=== PATIENT | male | born 1955 | race American Indian/Alaskan Native ===

== ENCOUNTER 2018-08-25 14:57 | Inpatient (IN) | payer MEDICARE, OTHER ==
[2018-08-25] MEDS ORDERED: SOLU-Medrol IV ONE (15:12)
[2018-08-25 15:45] LABS: Basophils % (Auto) 0.5 % (0.0-1.8); Eosinophils % (Auto) 0.2 % (0.0-4.3); Hematocrit 38.6 % (35.5-45.6); Hemoglobin 12.3 gm/dl (11.8-15.2); Lymphocytes # (Auto) 0.7 K/mm3 (1.2-5.4); Lymphocytes % (Auto) 9.7 % (13.4-35.0); Mean Corpuscular HGB Conc 32 % (32-34); Mean Corpuscular Volume 98 fl (84-94); Monocytes # (Auto) 0.5 K/mm3 (0.0-0.8); Monocytes % (Auto) 7.1 % (0.0-7.3); Platelet Count 330 K/mm3 (140-440); Red Blood Count 3.94 M/mm3 (3.65-5.03); Red Cell Distribution Width 15.1 % (13.2-15.2)
[2018-08-25 15:56] LABS: INR 1.38 (0.87-1.13)
[2018-08-25 15:57] LABS: Partial Thromboplastin Time 41.7 Sec. (24.2-36.6)
[2018-08-25] MEDS ORDERED: NACL 0.9% 1000 ML IV ONE (16:04)
[2018-08-25] MEDS ORDERED: VANCOMYCIN 1,250 MG in NACL 0.9% 500 ML 500 ML IV ONE (16:04)
--- NOTE | 2018-08-25 17:23 | Cat Scan Report ---
FINAL REPORT EXAM: CT ANGIO CHEST HISTORY: hypoxia respiratory failure history of lung cancer TECHNIQUE: CTA of chest with IV contrast. Coronal and sagittal and MIP reconstructed images provided . PRIORS: None currently available. FINDINGS: Medial anterior left upper lobe mass measures 7.2 x 9.1 x 7.8 cm with heterogeneous enhancement. Lesi on abuts the pericardium with out obvious direct cardiac invasion. Lesion extends through the thoraci c wall with a soft tissue component measuring 7.5 x 2.4 cm. Rib destruction noted. Protrusion and mas s-effect on the pectoralis muscle noted. Stranding of the nearby lung parenchymal soft tissues may be related to pulmonary fibrosis or lymphangitic spread. Mild nearby pleural thickening identified. Mod erate emphysema noted. Diffuse interseptal thickening with traction bronchiectasis noted. Peripheral honeycombing identified. Ground-glass opacities noted in the dependent both lungs. No centrilobular n odules. No distinct endobronchial lesion. Axillary regions are unremarkable. No significant mediastinal adenopathy. Hilar regions are grossly u nremarkable. Images of the esophagus are unremarkable. Moderate aortic atherosclerotic disease. No aneurysm. No dissection. Major branch arteries are patent . Moderate disease at the origin of the major branch arteries. Main pulmonary artery is intact. No tumor invasion. No pulmonary embolus. Moderate cardiomegaly. No significant pericardial effusion. Some coronary artery disease. Indeterminate nodularity of the left adrenal gland measures 1.8 x 1.2 cm. There may be some indetermi liat nodularity of the right adrenal gland measuring 1.9 x 1.1 cm. Tumor osseous destruction of the left anterior 3rd, 4th, and 5th ribs. Metastatic disease better eval uated with bone scan. Degenerative changes are present in the spine. Scoliosis. IMPRESSION: Emphysema. Interseptal thickening with traction bronchiectasis and ground-glass opacities may represent pulmonar y fibrosis. Differential diagnosis does include mild underlying pulmonary vascular congestion. Large anterior medial left upper lobe mass extending through the thoracic margins into the anterior s oft tissues with rib destruction. No aortic aneurysm. No pulmonary embolus. Cardiomegaly. Indeterminate bilateral adrenal nodules.
[2018-08-25 18:03] LABS: Hematocrit 40.9 % (35.5-45.6); Hemoglobin 13.5 gm/dl (11.8-15.2); Mean Corpuscular HGB Conc 33 % (32-34); Mean Corpuscular Volume 97 fl (84-94); Platelet Count 187 K/mm3 (140-440); Red Blood Count 4.21 M/mm3 (3.65-5.03); Red Cell Distribution Width 14.9 % (13.2-15.2)
--- NOTE | 2018-08-25 18:08 | XRay Report ---
FINAL REPORT EXAM: XR CHEST 1V AP HISTORY: Dyspnea TECHNIQUE: Frontal portable examination of the chest PRIORS: Chest CT 08/25/2018 FINDINGS: Patchy opacity likely corresponds to nonspecific large mass on chest CT in the anteromedial lower asp ect of the left upper lobe. It extends from the cardiac margin to the anterolateral pleural surface. Nonspecific streaky densities are present bilaterally and diffusely. This interstitial prominence ma y represent interstitial and/or vascular markings. No evidence of pleural effusion or pneumothorax. The cardiac silhouette size is slightly enlarged. N o evidence of acute displaced fracture. Postsurgical changes with midline median sternotomy suggest p rior CABG procedure. Arterial calcification is compatible with atherosclerosis. Surgical clips visibl e in right lower neck. IMPRESSION: Nonspecific interstitial prominence may reflect scarring or fibrosis. Acute considerations include r eactive airways disease, vascular congestion, interstitial edema, viral process, or interstitial pneu monitis. Patchy opacity likely corresponds to nonspecific large mass on chest CT in the anteromedial lower asp ect of the left upper lobe. It extends from the cardiac margin to the anterolateral pleural surface. Cardiomegaly
[2018-08-25] MEDS ORDERED: ATIVAN IV ONE (18:25)
[2018-08-25 18:30] LABS: Band Neutrophils # (Manual) 0.1 K/mm3; Basophils % (Manual) 0 % (0.0-1.8); Eosinophils % (Manual) 0 % (0.0-4.3); Total Cells Counted 100
[2018-08-25 18:31] LABS: Platelet Estimate Consistent w Auto; Poikilocytosis Few
[2018-08-25] MEDS ORDERED: VASELINE LIP THERAPY TP PRN (19:04)
[2018-08-25] MEDS ORDERED: ARTIFICIAL TEARS OPHTH OINT OU PRN (19:04)
[2018-08-25] MEDS ORDERED: AMIDATE IV ONE (19:18)
[2018-08-25] MEDS ORDERED: VERSED IV ONE (19:18)
[2018-08-25] MEDS ORDERED: QUELICIN ONE (19:18)
[2018-08-25] MEDS: MAXIPIME/NS 2 GM/100 ML 2 GM/100 ML BAG IV SCH ×2 (19:22→22:00)
[2018-08-25] MEDS ORDERED: DIPRIVAN 10 MG/ML 1,000 MG/100 ML BOTTLE IV SCH (19:25)
--- NOTE | 2018-08-25 19:26 | Emergency Department Report ---
ED Shortness of Breath HPI - General Chief Complaint: Dyspnea/Respdistress Stated Complaint: RESPIRATORY DISTRESS Time Seen by Provider: 08/25/18 14:59 Source: EMS Mode of arrival: Stretcher Limitations: No Limitations - History of Present Illness Initial Comments: Mr. Graff is a 63 yo male who has stage 3B T4N0 non small cell lung cancer currently receiving radiation treatment per Dr. Noriega. For several days, Mr. Graff has had severe shortness of breath and cough. No hx of COPD. Denies chest pain. EMS reported severe 66% room air oxygen saturation. Mr. Graff was able to only give limited hx. He also has left leg numbness/weakness. He stated that sometimes his leg worked and sometimes it did not work. PCP [facility] at [facility] Additional information was provided by radiation oncologist Dr. Noriega Dr. Noriega explained that Mr. Graff was diagnosed with lung cancer last year. He did not desire any treatment. His in February after suffering this chemotherapy. He refused chemotherapy. Eventually he decided to accept radiation. Dr. Noriega administered [address] Noriega explained that Mr. Graff has a T4 tumor with invasion into the myocardium and pericardium with rib destruction. Radiation treatment completed in June. In July, Dr. Noriega felt that Mr. Graff looked much better. Complaint: shortness of breath -: Gradual, days(s) (several days) Severity: severe Consistency: constant Improves With: nothing Worsens With: lying flat Known History Of: other (stage 3 lung cancer, radiation therapy by Dr. Noriega) Context: smoke/fume exposure Associated Symptoms: cough, other (left leg numbness, intermittent weakness) - Related Data Allergies Allergy/AdvReac Type Severity Reaction Status Date / Time No Known Allergies Allergy Verified 08/25/18 15:07 ED Review of Systems ROS: Stated complaint: RESPIRATORY DISTRESS Other details as noted in HPI Comment: All other systems reviewed and negative Constitutional: malaise. denies: fever Respiratory: cough, shortness of breath Cardiovascular: denies: chest pain ED Past Medical Hx - Past Medical History Previous Medical History?: Yes Hx Congestive Heart Failure: Yes (2008) Hx of Cancer: Yes (stage 3 lung cancer) - Surgical History Past Surgical History?: No - Social History Smoking Status: Current Every Day Smoker Substance Use Type: None ED Physical Exam - General Limitations: No Limitations General appearance: in distress, other (severe work of breathing, speaking 2-3 word sentences) - Head Head exam: Present: atraumatic, normocephalic - Eye Eye exam: Present: normal appearance. Absent: scleral icterus - ENT ENT exam: Present: other (coated tongue poor dentition) - Neck Neck exam: Present: normal inspection, full ROM. Absent: tenderness, meningismus - Respiratory Respiratory exam: Present: normal lung sounds bilaterally, respiratory distress, accessory muscle use. Absent: wheezes, rales, rhonchi, chest wall tenderness - Cardiovascular Cardiovascular Exam: Present: regular rate, normal rhythm, tachycardia, normal heart sounds. Absent: systolic murmur, diastolic murmur - GI/Abdominal GI/Abdominal exam: Present: soft. Absent: distended, tenderness, guarding, rebound - Extremities Exam Extremities exam: Present: normal inspection - Neurological Exam Neurological exam: Present: alert, oriented X3 - Skin Skin exam: Present: warm, dry, intact, normal color ED Course Vital Signs 08/25/18 08/25/18 08/25/18 15:01 15:03 15:15 Temperature Pulse Rate 98 H 101 H Respiratory 18 37 H Rate Blood Pressure 132/71 132/71 132/71 Blood Pressure [Left] O2 Sat by Pulse 92 91 92 Oximetry 08/25/18 08/25/18 08/25/18 15:31 15:45 16:01 Temperature Pulse Rate 97 H 94 H 95 H Respiratory 34 H 31 H 38 H Rate Blood Pressure 132/71 150/75 150/75 Blood Pressure [Left] O2 Sat by Pulse 92 93 Oximetry 08/25/18 08/25/18 08/25/18 16:33 16:45 17:00 Temperature Pulse Rate Respiratory Rate Blood Pressure 150/75 150/75 156/67 Blood Pressure [Left] O2 Sat by Pulse 85 94 91 Oximetry 08/25/18 08/25/18 08/25/18 17:15 17:31 17:45 Temperature Pulse Rate Respiratory Rate Blood Pressure 156/67 153/97 147/88 Blood Pressure [Left] O2 Sat by Pulse 91 85 89 Oximetry 08/25/18 08/25/18 08/25/18 18:00 18:15 18:30 Temperature Pulse Rate 93 H 113 H 121 H Respiratory 32 H 37 H 37 H Rate Blood Pressure 145/80 145/80 194/105 Blood Pressure [Left] O2 Sat by Pulse 78 L 84 77 L Oximetry 08/25/18 08/25/18 08/25/18 18:45 19:00 19:09 Temperature 98.1 F Pulse Rate 114 H 108 H 110 H Respiratory 45 H 21 34 H Rate Blood Pressure 143/97 162/83 Blood Pressure 149/97 [Left] O2 Sat by Pulse 96 91 88 Oximetry - Procedure Description Procedures done: Nasogastric Tube Insertion: I inserted 12 Fr NGT, did ausculate sound of [place] pump air movement in epigastric - ABG Interpretation Interpretation: metabolic acidosis Additional Comments: severe worsening respiratory acidosis, initially able to compensate with respiratory effort, then eventually respiratory failure - Intubation Time Out Performed: Yes Sedative: Etomidate Mg Given: 20 Paralytic: Succinylcholine Mg Given: 150 Laryngoscope: Citlali Size: 4 ET Tube Size: 8 Tube Secured Depth (cm): 22 Tube Secured Location: lips Tube Placement Confirmation: visualized tube passing t, equal breath sounds bilat, no breath sounds over epi, confirmation by capnometr Patient Tolerated Procedure: well Intubation Complications: none ED Medical Decision Making - Lab Data Result diagrams: 08/25/18 16:54 08/25/18 15:27 Laboratory Results - last 24 hr 08/25/18 08/25/18 08/25/18 15:27 15:27 15:27 WBC 7.6 RBC 3.94 Hgb 12.3 Hct 38.6 MCV 98 H MCH 31 MCHC 32 RDW 15.1 Plt Count 330 Lymph % (Auto) 9.7 L [place] % (Auto) 7.1 Eos % (Auto) 0.2 Baso % (Auto) 0.5 Lymph # 0.7 L [place] # 0.5 Eos # 0.0 Baso # 0.0 Add Manual Diff Total Counted Seg Neutrophils % 82.5 H Seg Neuts % (Manual) Band Neutrophils % Lymphocytes % (Manual) Reactive Lymphs % (Man) Monocytes % (Manual) Eosinophils % (Manual) Basophils % (Manual) Metamyelocytes % Myelocytes % Promyelocytes % Blast Cells % Nucleated RBC % Seg Neutrophils # 6.3 Seg Neutrophils # Man Band Neutrophils # Lymphocytes # (Manual) Abs React Lymphs (Man) Monocytes # (Manual) Eosinophils # (Manual) Basophils # (Manual) Metamyelocytes # Myelocytes # Promyelocytes # Blast Cells # WBC Morphology Hypersegmented Neuts Hyposegmented Neuts Hypogranular Neuts Smudge Cells Toxic Granulation Toxic Vacuolation Dohle Bodies Pelger-Huet Anomaly Kamran Rods Platelet Estimate Clumped Platelets Plt Clumps, EDTA Large Platelets Giant Platelets Platelet Satelliting Plt Morphology Comment RBC Morphology Dimorphic RBCs Polychromasia Hypochromasia Poikilocytosis Anisocytosis Microcytosis Macrocytosis Spherocytes Pappenheimer Bodies Sickle Cells Target Cells Tear Drop Cells Ovalocytes Helmet Cells Seth-[place] Bodies [place] Rings [place] Cells Bite Cells Crenated Cell Elliptocytes Acanthocytes (Spur) Rouleaux Hemoglobin C Crystals Schistocytes Malaria parasites Manoj Bodies Hem Pathologist Commnt PT 17.4 H INR 1.38 H APTT 41.7 H POC ABG pH POC ABG pCO2 POC ABG pO2 POC ABG HCO3 POC ABG Total CO2 POC ABG O2 Sat POC ABG Base Excess FiO2 Sodium 134 L Potassium 4.6 Chloride 95.7 L Carbon Dioxide 17 L Anion Gap 26 BUN 10 Creatinine 1.5 Estimated GFR 58 BUN/Creatinine Ratio 7 Glucose 126 H Lactic Acid Calcium 9.0 Magnesium 1.90 Total Bilirubin 1.20 AST 313 H ALT 131 H Alkaline Phosphatase 113 NT-Pro-B Natriuret Pep Total Protein 8.4 H Albumin 3.0 L Albumin/Globulin Ratio 0.6 08/25/18 08/25/18 08/25/18 15:27 15:50 16:54 WBC 5.7 RBC 4.21 Hgb 13.5 Hct 40.9 MCV 97 H MCH 32 MCHC 33 RDW 14.9 Plt Count 187 Lymph % (Auto) Composition Professor [place] % (Auto) Composition Professor Eos % (Auto) Composition Professor Baso % (Auto) Composition Professor Lymph # Composition Professor [place] # Composition Professor Eos # Composition Professor Baso # Composition Professor Add Manual Diff Complete Total Counted 100 Seg Neutrophils % Composition Professor Seg Neuts % (Manual) 81.0 H Band Neutrophils % 1.0 Lymphocytes % (Manual) 10.0 L Reactive Lymphs % (Man) 0 Monocytes % (Manual) 8.0 H Eosinophils % (Manual) 0 Basophils % (Manual) 0 Metamyelocytes % 0 Myelocytes % 0 Promyelocytes % 0 Blast Cells % 0 Nucleated RBC % Not Reportable Seg Neutrophils # Composition Professor Seg Neutrophils # Man 4.6 Band Neutrophils # 0.1 Lymphocytes # (Manual) 0.6 L Abs React Lymphs (Man) 0.0 Monocytes # (Manual) 0.5 Eosinophils # (Manual) 0.0 Basophils # (Manual) 0.0 Metamyelocytes # 0.0 Myelocytes # 0.0 Promyelocytes # 0.0 Blast Cells # 0.0 WBC Morphology Not Reportable Hypersegmented Neuts Not Reportable Hyposegmented Neuts Not Reportable Hypogranular Neuts Not Reportable Smudge Cells Not Reportable Toxic Granulation Not Reportable Toxic Vacuolation Not Reportable Dohle Bodies Not Reportable Pelger-Huet Anomaly Not Reportable Kamran Rods Not Reportable Platelet Estimate Consistent w auto Clumped Platelets Not Reportable Plt Clumps, EDTA Not Reportable Large Platelets Not Reportable Giant Platelets Not Reportable Platelet Satelliting Not Reportable Plt Morphology Comment Not Reportable RBC Morphology Not Reportable Dimorphic RBCs Not Reportable Polychromasia Not Reportable Hypochromasia Not Reportable Poikilocytosis Few Anisocytosis Not Reportable Microcytosis Not Reportable Macrocytosis Not Reportable Spherocytes Not Reportable Pappenheimer Bodies Not Reportable Sickle Cells Not Reportable Target Cells Not Reportable Tear Drop Cells Not Reportable Ovalocytes Not Reportable Helmet Cells Not Reportable Seth-[place] Bodies Not Reportable [place] Rings Not Reportable [place] Cells Not Reportable Bite Cells Not Reportable Crenated Cell Not Reportable Elliptocytes Not Reportable Acanthocytes (Spur) Not Reportable Rouleaux Not Reportable Hemoglobin C Crystals Not Reportable Schistocytes Not Reportable Malaria parasites Not Reportable Manoj Bodies Not Reportable Hem Pathologist Commnt No PT INR APTT POC ABG pH 7.367 POC ABG pCO2 26.2 L POC ABG pO2 79 L POC ABG HCO3 15.0 POC ABG Total CO2 16 POC ABG O2 Sat 95 POC ABG Base Excess -10 FiO2 50 Sodium Potassium Chloride Carbon Dioxide Anion Gap BUN Creatinine Estimated GFR BUN/Creatinine Ratio Glucose Lactic Acid 8.50 H* Calcium Magnesium Total Bilirubin AST ALT Alkaline Phosphatase NT-Pro-B Natriuret Pep Total Protein Albumin Albumin/Globulin Ratio 08/25/18 08/25/18 16:54 18:53 WBC RBC Hgb Hct MCV MCH MCHC RDW Plt Count Lymph % (Auto) [place] % (Auto) Eos % (Auto) Baso % (Auto) Lymph # [place] # Eos # Baso # Add Manual Diff Total Counted Seg Neutrophils % Seg Neuts % (Manual) Band Neutrophils % Lymphocytes % (Manual) Reactive Lymphs % (Man) Monocytes % (Manual) Eosinophils % (Manual) Basophils % (Manual) Metamyelocytes % Myelocytes % Promyelocytes % Blast Cells % Nucleated RBC % Seg Neutrophils # Seg Neutrophils # Man Band Neutrophils # Lymphocytes # (Manual) Abs React Lymphs (Man) Monocytes # (Manual) Eosinophils # (Manual) Basophils # (Manual) Metamyelocytes # Myelocytes # Promyelocytes # Blast Cells # WBC Morphology Hypersegmented Neuts Hyposegmented Neuts Hypogranular Neuts Smudge Cells Toxic Granulation Toxic Vacuolation Dohle Bodies Pelger-Huet Anomaly Kamran Rods Platelet Estimate Clumped Platelets Plt Clumps, EDTA Large Platelets Giant Platelets Platelet Satelliting Plt Morphology Comment RBC Morphology Dimorphic RBCs Polychromasia Hypochromasia Poikilocytosis Anisocytosis Microcytosis Macrocytosis Spherocytes Pappenheimer Bodies Sickle Cells Target Cells Tear Drop Cells Ovalocytes Helmet Cells Seth-[place] Bodies [place] Rings [place] Cells Bite Cells Crenated Cell Elliptocytes Acanthocytes (Spur) Rouleaux Hemoglobin C Crystals Schistocytes Malaria parasites Manoj Bodies Hem Pathologist Commnt PT INR APTT POC ABG pH 7.110 L POC ABG pCO2 25.7 L POC ABG pO2 99 POC ABG HCO3 8.2 POC ABG Total CO2 9 POC ABG O2 Sat 95 POC ABG Base Excess -21 FiO2 60 Sodium Potassium Chloride Carbon Dioxide Anion Gap BUN Creatinine Estimated GFR BUN/Creatinine Ratio Glucose Lactic Acid Calcium Magnesium Total Bilirubin AST ALT Alkaline Phosphatase NT-Pro-B Natriuret Pep 26217 H Total Protein Albumin Albumin/Globulin Ratio - EKG Data 08/25/18 19:45 TIme Obtained 1507 Sinus tachycardia 100 bpm nl axis nl intervals no ST elevation lateral T wave abnormality - Medical Decision Making Mr. Graff is a very pleasant gentleman with history of stage IIIB T4 N0 non- small cell lung cancer. Presents with severe hypoxia acute respiratory failure. Eventually did well venturi mask oxygenation 50% for several hours even able to lay for CT scan. Later during course, he became agitated and anxious. He would not keep on Venturi mask. BiPAP applied by Respiratory therapist, able to oxygenate but with severe work of breathing. I did ask if he desired to be placed on life support. He agreed but appeared unsure. Intubation performed. I spoke with radiation oncologist for [facility] Radiation oncology. He provided Dr. Noriega's cell phone number. crew caller physician explained that she is a Murphy physician. Dr. Noriega was able to give hx. She presumed that Mr. Graff has pneumonitis even influenza. She recommended long prednisone taper and treatment for influenza. I was concerned for severe metabolic anion gap acidosis, lactic acidosis. Did not have SIRS or signs of bacteremia. However, with elevated AST/ALT/INR, metastatic liver disease is a possibility. No hypotension seen during ED course. Broad spectrum antibiotics including IVF 30 ml/kg provided in the ED. Sodium bicarbonate provided for worsening metabolic acidosis. I suspect overwhelming metastatic disease as the cause of Mr. Graff's decline especially tumor invasion into the pericardium and myocardium which explains elevated BNP. Dr. Matthews sheet metal worker supervisor consulted Dr. Nair consulted Dr. Jono Murphy physician recommended and approved admission to our hospital due to severe illness. Critical Care Time: Yes Critical care time in (mins) excluding proc time.: 100 Critical care attestation.: If time is entered above; I have spent that time in minutes in the direct care of this critically ill patient, excluding procedure time. 100 minutes of critical care time excluding procedures were used in the care of the patient. Patient required multiple assessments and interventions. I reviewed the electronic medical record. I spoke with consultants involved in the care of the patient. ED Disposition Clinical Impression: Acute respiratory failure with hypoxia, Metastatic lung carcinoma, Pneumonitis Disposition: OP ADMIT IP TO THIS HOSP Is pt being admited?: Yes Does the pt Need Aspirin: No Condition: Critical
[2018-08-25] MEDS ORDERED: VERSED IV NR (20:00)
--- NOTE | 2018-08-25 20:04 | XRay Report ---
FINAL REPORT EXAM: XR CHEST 1V AP HISTORY: ETT placement TECHNIQUE: Frontal portable view of the chest Comparison: Chest x-ray performed earlier today at 16:05 FINDINGS: There has been interval placement of an endotracheal tube. The tip of the endotracheal tube is projec paige at the superior aspect of the clavicles. There has been interval progression of the bilateral interstitial and airspace process particularly i n the lower lobes bilaterally, left greater than right. There is a possible left pleural fluid collection. There is no evidence of pneumothorax. The cardiomediastinal silhouette is not significantly changed. IMPRESSION: 1. Tip of endotracheal tube at the superior aspect of the clavicles. If the endotracheal tube was adv anced approximately 3 centimeters the tip would be at the level of the inferior aspect of the clavicl es and above the level of the ginny. 2. Progressive bilateral interstitial and airspace process.
--- NOTE | 2018-08-25 20:22 | History and Physical Report ---
History of Present Illness Date of examination: 08/25/18 Date of admission: 08/25/2017 Chief complaint: Respiratory distress for 1 day History of present illness: He is going to 63-year-old -[place] male with history of non-small cell lung cancer stage IIIB T4 and NO complaints in for increasing shortness of breath and low oxygen saturations. Patient has been short of breath since yesterday. Oxygen saturation was 66% as per EMS.. In the emergency room the oxygenation improved to some extent and then desaturated again at which point patient was intubated. Patient is able to give limited history. Initially patient was refusing chemotherapy but then agreed for radiation therapy. He underwent radiation therapy for 4 weeks on June 2018. Post radiation therapy patient was doing better as per the radiation oncologist. No fever or chills. Shortness of breath present and cough productive of mucoid sputum. Past Medical History Previous Medical History?: Yes Hx Congestive Heart Failure: Yes (2008) Hx of Cancer: Yes (stage 3 lung cancer) Surgical History Past Surgical History?: No Social History Smoking Status: Current Every Day Smoker Substance Use Type: None Family history n/a Review of Systems ROS: Stated complaint: RESPIRATORY DISTRESS Other details as noted in HPI Comment: All other systems reviewed and negative Constitutional: malaise. denies: fever Respiratory: cough, shortness of breath Cardiovascular: denies: chest pain 14 point review of systems done Some weight loss present Medications and Allergies Allergies Allergy/AdvReac Type Severity Reaction Status Date / Time No Known Allergies Allergy Verified 08/25/18 15:07 Home Medications Medication Instructions Recorded Confirmed Last Taken Type Unobtainable 08/25/18 08/25/18 Unknown History Active Meds: Active Medications Hydrophilic Ointment (Vaseline Lip Therapy) 1 applic TP Q2HR PRN PRN Reason: Dry Lips Cefepime HCl (Maxipime/Ns 2 Gm/100 Ml) 2 gm in 100 mls @ 200 mls/hr IV Q8HR S ; Protocol Last Admin: 08/25/18 19:22 Dose: 200 mls/hr Documented by: Propofol (Diprivan 10 Mg/Ml) 1,000 mg in 100 mls @ 2.04 mls/hr IV TITR ALLEN; Protocol Midazolam HCl (Versed) 5 mg IV ONCE NR Stop: 08/25/18 23:59 Multi-Ingred Cream/Lotion/Oil/Oint (Artificial Tears Ophth Oint) 1 applic OU Q4HR PRN PRN Reason: Dry Eye(s) Oseltamivir Phosphate (Tamiflu) 75 mg PO ONCE ONE Stop: 08/25/18 20:31 Exam - Constitutional Vitals: Temp Pulse Resp BP Pulse Ox 98.1 F 110 H 34 H 149/97 88 08/25/18 19:09 08/25/18 19:09 08/25/18 19:09 08/25/18 19:09 08/25/18 19:09 General appearance: Present: severe distress, well-nourished - EENT Eyes: Present: PERRL ENT: hearing intact, clear oral mucosa - Neck Neck: Present: supple, normal ROM - Respiratory Respiratory effort: normal Respiratory: left: diminished, bilateral: CTA, rhonchi - Cardiovascular Heart rate: 100 Rhythm: regular Heart Sounds: Present: S1 & S2. Absent: rub, click - Extremities Extremities: no ischemia, pulses intact, pulses symmetrical, No edema Peripheral Pulses: within normal limits - Abdominal General gastrointestinal: Present: soft, non-tender, non-distended, normal bowel sounds Male genitourinary: Present: normal - Integumentary Integumentary: Present: clear, warm, dry - Musculoskeletal Musculoskeletal: generalized weakness - Psychiatric Psychiatric: appropriate mood/affect, intact judgment & insight, cooperative - Neurologic Neurologic: CNII-XII intact, moves all extremities - Allied Health Allied health notes reviewed: nursing, case management Results - Labs CBC & Chem 7: 08/25/18 16:54 08/25/18 15:27 Labs: Laboratory Last Values WBC 5.7 K/mm3 (4.5-11.0) 08/25/18 16:54 RBC 4.21 M/mm3 (3.65-5.03) 08/25/18 16:54 Hgb 13.5 gm/dl (11.8-15.2) 08/25/18 16:54 Hct 40.9 % (35.5-45.6) 08/25/18 16:54 MCV 97 fl (84-94) H 08/25/18 16:54 MCH 32 pg (28-32) 08/25/18 16:54 MCHC 33 % (32-34) 08/25/18 16:54 RDW 14.9 % (13.2-15.2) 08/25/18 16:54 Plt Count 187 K/mm3 (140-440) 08/25/18 16:54 Lymph % (Auto) Egg Sorter 08/25/18 16:54 [place] % (Auto) Egg Sorter 08/25/18 16:54 Eos % (Auto) Egg Sorter 08/25/18 16:54 Baso % (Auto) Egg Sorter 08/25/18 16:54 Lymph # Egg Sorter 08/25/18 16:54 [place] # Egg Sorter 08/25/18 16:54 Eos # Egg Sorter 08/25/18 16:54 Baso # Egg Sorter 08/25/18 16:54 Add Manual Diff Complete 08/25/18 16:54 Total Counted 100 08/25/18 16:54 Seg Neutrophils % Egg Sorter 08/25/18 16:54 Seg Neuts % (Manual) 81.0 % (40.0-70.0) H 08/25/18 16:54 Band Neutrophils % 1.0 % 08/25/18 16:54 Lymphocytes % (Manual) 10.0 % (13.4-35.0) L 08/25/18 16:54 Reactive Lymphs % (Man) 0 % 08/25/18 16:54 Monocytes % (Manual) 8.0 % (0.0-7.3) H 08/25/18 16:54 Eosinophils % (Manual) 0 % (0.0-4.3) 08/25/18 16:54 Basophils % (Manual) 0 % (0.0-1.8) 08/25/18 16:54 Metamyelocytes % 0 % 08/25/18 16:54 Myelocytes % 0 % 08/25/18 16:54 Promyelocytes % 0 % 08/25/18 16:54 Blast Cells % 0 % 08/25/18 16:54 Nucleated RBC % Not Reportable 08/25/18 16:54 Seg Neutrophils # Egg Sorter 08/25/18 16:54 Seg Neutrophils # Man 4.6 K/mm3 (1.8-7.7) 08/25/18 16:54 Band Neutrophils # 0.1 K/mm3 08/25/18 16:54 Lymphocytes # (Manual) 0.6 K/mm3 (1.2-5.4) L 08/25/18 16:54 Abs React Lymphs (Man) 0.0 K/mm3 08/25/18 16:54 Monocytes # (Manual) 0.5 K/mm3 (0.0-0.8) 08/25/18 16:54 Eosinophils # (Manual) 0.0 K/mm3 (0.0-0.4) 08/25/18 16:54 Basophils # (Manual) 0.0 K/mm3 (0.0-0.1) 08/25/18 16:54 Metamyelocytes # 0.0 K/mm3 08/25/18 16:54 Myelocytes # 0.0 K/mm3 08/25/18 16:54 Promyelocytes # 0.0 K/mm3 08/25/18 16:54 Blast Cells # 0.0 K/mm3 08/25/18 16:54 WBC Morphology Not Reportable 08/25/18 16:54 Hypersegmented Neuts Not Reportable 08/25/18 16:54 Hyposegmented Neuts Not Reportable 08/25/18 16:54 Hypogranular Neuts Not Reportable 08/25/18 16:54 Smudge Cells Not Reportable 08/25/18 16:54 Toxic Granulation Not Reportable 08/25/18 16:54 Toxic Vacuolation Not Reportable 08/25/18 16:54 Dohle Bodies Not Reportable 08/25/18 16:54 Pelger-Huet Anomaly Not Reportable 08/25/18 16:54 Kamran Rods Not Reportable 08/25/18 16:54 Platelet Estimate Consistent w auto 08/25/18 16:54 Clumped Platelets Not Reportable 08/25/18 16:54 Plt Clumps, EDTA Not Reportable 08/25/18 16:54 Large Platelets Not Reportable 08/25/18 16:54 Giant Platelets Not Reportable 08/25/18 16:54 Platelet Satelliting Not Reportable 08/25/18 16:54 Plt Morphology Comment Not Reportable 08/25/18 16:54 RBC Morphology Not Reportable 08/25/18 16:54 Dimorphic RBCs Not Reportable 08/25/18 16:54 Polychromasia Not Reportable 08/25/18 16:54 Hypochromasia Not Reportable 08/25/18 16:54 Poikilocytosis Few 08/25/18 16:54 Anisocytosis Not Reportable 08/25/18 16:54 Microcytosis Not Reportable 08/25/18 16:54 Macrocytosis Not Reportable 08/25/18 16:54 Spherocytes Not Reportable 08/25/18 16:54 Pappenheimer Bodies Not Reportable 08/25/18 16:54 Sickle Cells Not Reportable 08/25/18 16:54 Target Cells Not Reportable 08/25/18 16:54 Tear Drop Cells Not Reportable 08/25/18 16:54 Ovalocytes Not Reportable 08/25/18 16:54 Helmet Cells Not Reportable 08/25/18 16:54 [place] Bodies Not Reportable 08/25/18 16:54 [place] Rings Not Reportable 08/25/18 16:54 [place] Cells Not Reportable 08/25/18 16:54 Bite Cells Not Reportable 08/25/18 16:54 Crenated Cell Not Reportable 08/25/18 16:54 Elliptocytes Not Reportable 08/25/18 16:54 Acanthocytes (Spur) Not Reportable 08/25/18 16:54 Rouleaux Not Reportable 08/25/18 16:54 Hemoglobin C Crystals Not Reportable 08/25/18 16:54 Schistocytes Not Reportable 08/25/18 16:54 Malaria parasites Not Reportable 08/25/18 16:54 Manoj Bodies Not Reportable 08/25/18 16:54 Hem Pathologist Commnt No 08/25/18 16:54 PT 17.4 Sec. (12.2-14.9) H 08/25/18 15:27 INR 1.38 (0.87-1.13) H 08/25/18 15:27 APTT 41.7 Sec. (24.2-36.6) H 08/25/18 15:27 POC ABG pH 7.110 (7.35-7.45) L 08/25/18 18:53 POC ABG pCO2 25.7 (35-45) L 08/25/18 18:53 POC ABG pO2 99 (80-105) 08/25/18 18:53 POC ABG HCO3 8.2 08/25/18 18:53 POC ABG Total CO2 9 08/25/18 18:53 POC ABG O2 Sat 95 08/25/18 18:53 POC ABG Base Excess -21 08/25/18 18:53 FiO2 60 % 08/25/18 18:53 Sodium 134 mmol/L (137-145) L 08/25/18 15:27 Potassium 4.6 mmol/L (3.6-5.0) 08/25/18 15:27 Chloride 95.7 mmol/L (98-107) L 08/25/18 15:27 Carbon Dioxide 17 mmol/L (22-30) L 08/25/18 15:27 Anion Gap 26 mmol/L 08/25/18 15:27 BUN 10 mg/dL (9-20) 08/25/18 15:27 Creatinine 1.5 mg/dL (0.8-1.5) 08/25/18 15:27 Estimated GFR 58 ml/min 08/25/18 15:27 BUN/Creatinine Ratio 7 % 08/25/18 15:27 Glucose 126 mg/dL (75-100) H 08/25/18 15:27 Lactic Acid 8.50 mmol/L (0.7-2.0) H* 08/25/18 15:27 Calcium 9.0 mg/dL (8.4-10.2) 08/25/18 15:27 Magnesium 1.90 mg/dL (1.7-2.3) 08/25/18 15:27 Total Bilirubin 1.20 mg/dL (0.1-1.2) 08/25/18 15:27 AST 313 units/L (5-40) H 08/25/18 15:27 ALT 131 units/L (7-56) H 08/25/18 15:27 Alkaline Phosphatase 113 units/L (35-129) 08/25/18 15:27 NT-Pro-B Natriuret Pep 78523 pg/mL (0-900) H 08/25/18 16:54 Total Protein 8.4 g/dL (6.3-8.2) H 08/25/18 15:27 Albumin 3.0 g/dL (3.9-5) L 08/25/18 15:27 Albumin/Globulin Ratio 0.6 % 08/25/18 15:27 Short CBC 08/25/18 08/25/18 Range/Units 15:27 16:54 WBC 7.6 5.7 (4.5-11.0) K/mm3 Hgb 12.3 13.5 (11.8-15.2) gm/dl Hct 38.6 40.9 (35.5-45.6) % Plt Count 330 187 (140-440) K/mm3 BMP 08/25/18 15:27 Sodium 134 L Potassium 4.6 Chloride 95.7 L Carbon Dioxide 17 L BUN 10 Creatinine 1.5 Glucose 126 H Calcium 9.0 Liver Function 08/25/18 Range/Units 15:27 Total Bilirubin 1.20 (0.1-1.2) mg/dL AST 313 H (5-40) units/L ALT 131 H (7-56) units/L Alkaline Phosphatase 113 (35-129) units/L Albumin 3.0 L (3.9-5) g/dL - Imaging and Cardiology EKG: report reviewed (sinus tachycardia with heart rate of 101 abnormal T waves and T-wave inversion in lead V4 V5 and V6) Imaging and Cardiology: CT chest IMPRESSION: Emphysema. Interseptal thickening with traction bronchiectasis and ground-glass opacities may represent pulmonary fibrosis. Differential diagnosis does include mild underlying pulmonary vascular congestion. Large anterior medial left upper lobe mass extending through the thoracic margins into the anterior soft tissues with rib destruction. No aortic aneurysm. No pulmonary embolus. Cardiomegaly. Indeterminate bilateral adrenal nodules. Chest x-ray IMPRESSION: Nonspecific interstitial prominence may reflect scarring or fibrosis. Acute considerations include reactive airways disease, vascular congestion, interstitial edema, viral process, or interstitial pneumonitis. Patchy opacity likely corresponds to nonspecific large mass on chest CT in the anteromedial lower aspect of the left upper lobe. It extends from the cardiac margin to the anterolateral pleural surface. Cardiomegaly Repeat chest x-ray IMPRESSION: 1. Tip of endotracheal tube at the superior aspect of the clavicles. If the endotracheal tube was advanced approximately 3 centimeters the tip would be at the level of the inferior aspect of the clavicles and above the level of the ginny. 2. Progressive bilateral interstitial and airspace process. Assessment and Plan Assessment and plan: Critical care statement The high probability of a clinically significant, sudden [id number] deterioration of the pulmonary cardiac renal systems required my full and direct attention, intervention and postoperative management. The abdomen. Critical care time was 40 minutes. This was in addition to time spent performing reported procedures but includes the following Data review and interpretation Patient assessment and monitoring of vital signs Documentation Medication orders and management Advance Directives: Yes (full code) VTE prophylaxis?: Chemical Plan of care discussed with patient/family: Yes - Patient Problems (1) Acute respiratory failure with hypoxia Current Visit: Yes Status: Acute Plan to address problem: Patient intubated Vent support Critical care consult for Dr. Cassie Stewart daily every 6hrs [id number] Albuterol every 4 hours when necessary IV Solu-Medrol 60 mg every 8 hours IV antibiotics (2) Sepsis Current Visit: Yes Status: Acute Plan to address problem: Sepsis a high possibility Lactic acid is very high Patient started on IV cefepime and vancomycin (3) Postobstructive pneumonia Current Visit: Yes Status: Acute Plan to address problem: Patient initiated on IV cefepime and vancomycin High lactic acid Possible sepsis (4) Lung cancer metastatic to bone Current Visit: Yes Status: Acute Plan to address problem: Patient had the radiation therapy in June for 4 weeks. Patient was refusing chemotherapy. Oncology consult requested. Patient is a poor prognosis] Tried to talk with his daughter for DO NOT RESUSCITATE. Daughter was not reachable. (5) Hyponatremia Current Visit: Yes Status: Acute Plan to address problem: IV normal saline (6) DVT prophylaxis Current Visit: Yes Status: Acute Plan to address problem: On Lovenox and GI prophylaxis (7) Advanced care planning/counseling discussion Current Visit: Yes Status: Acute Plan to address problem: To be done by the primary team because I could not reach the daughter and no one was at the bedside
[2018-08-25] MEDS ORDERED: SODIUM CHLORIDE FLUSH SYRINGE 10 ML IV PRN (20:25)
[2018-08-25] MEDS ORDERED: DILAUDID IV PRN (20:25)
[2018-08-25] MEDS ORDERED: TYLENOL PO PRN (20:25)
[2018-08-25] MEDS ORDERED: ZOFRAN IV PRN (20:25)
[2018-08-25] MEDS ORDERED: PROVENTIL IH PRN (20:29)
[2018-08-25] MEDS ORDERED: TAMIFLU PO ONE (20:30)
[2018-08-25] MEDS ORDERED: SIMPLE SYRUP FEEDTUBE PRN ×2 (20:42)
[2018-08-25] MEDS ORDERED: PANCREAZE DR 10,500 UNIT FEEDTUBE PRN (20:42)
[2018-08-25] MEDS ORDERED: SODIUM BICARBONATE FEEDTUBE PRN (20:42)
[2018-08-25] MEDS ORDERED: VANCOMYCIN PHARMACY TO DOSE IV SCH (21:00)
[2018-08-25] MEDS ORDERED: LEVAQUIN 750MG/150ML 750 MG/150 ML BAG IV SCH (21:00)
[2018-08-25] MEDS: NACL 0.9% 1000 ML 1,000 ML IV SCH (21:40)
--- NOTE | 2018-08-25 21:42 | XRay Report ---
FINAL REPORT PROCEDURE: XR ABDOMEN 1V AP TECHNIQUE: Abdominal radiograph, single supine AP view. HISTORY: intubation NGT placement COMPARISON: No prior studies are available for comparison. FINDINGS: Bowel gas pattern:Nonspecific. Masses or calcifications:None. Bony structures:No significant abnormality. Other:Nasogastric tube is coiled within the stomach and is terminating in the stomach. Bilateral lungs again demonstrate diffuse predominantly interstitial infiltrates left more than right . IMPRESSION: Nasogastric tube is coiled in the stomach and is terminating in the stomach
[2018-08-25] MEDS ORDERED: PEPCID IV SCH (22:00)
[2018-08-25 22:07] LABS: Chol/HDL Ratio 4.2 %
[2018-08-25] MEDS: DUONEB *Not for PRN Use IH SCH (22:11)
[2018-08-26] MEDS: PEPCID IV SCH ×2 (00:15→09:51)
[2018-08-26] MEDS: SOLU-Medrol IV SCH ×2 (00:15→05:17)
[2018-08-26] MEDS: SODIUM CHLORIDE FLUSH SYRINGE 10 ML IV SCH ×2 (00:16→09:51)
--- NOTE | 2018-08-26 00:35 | XRay Report ---
FINAL REPORT PROCEDURE: XR CHEST 1V AP TECHNIQUE: Chest radiograph anteroposterior view. CPT 19053 HISTORY: ETT advanced, placement verification COMPARISON: 08/25/2018 is FINDINGS: Heart: Heart is slightly enlarged. There has been open heart surgery. Mediastinum/Vessels: Normal. Lungs/Pleural space: There are left perihilar infiltrates. There is no pleural effusion or pneumothor ax.. Bony thorax: No acute osseous abnormality. Life support devices: The endotracheal tube is in the mid to distal trachea but above the ginny. The NG tube is in the stomach.. IMPRESSION: Heart is slightly enlarged. There has been open heart surgery. There are left perihilar infiltrates. There is no pleural effusion or pneumothorax.. The endotracheal tube is in the mid to distal trachea but above the ginny. The NG tube is in the sto mach.. .
[2018-08-26] MEDS: DUONEB *Not for PRN Use IH SCH ×3 (02:01→10:30)
[2018-08-26] MEDS: NACL 0.9% 1000 ML 1,000 ML IV SCH (02:17)
[2018-08-26] MEDS: MAXIPIME/NS 2 GM/100 ML 2 GM/100 ML BAG IV SCH (05:17)
[2018-08-26 05:23] LABS: Mean Corpuscular HGB Conc 29 % (32-34); Mean Corpuscular Volume 105 fl (84-94); Platelet Count 250 K/mm3 (140-440); Red Blood Count 3.65 M/mm3 (3.65-5.03); Red Cell Distribution Width 16.4 % (13.2-15.2)
[2018-08-26 05:35] LABS: Hematocrit 36.1 % (35.5-45.6); Hemoglobin 11.1 gm/dl (11.8-15.2)
[2018-08-26 05:36] LABS: Calcium 8.4 mg/dL (8.4-10.2)
[2018-08-26] MEDS ORDERED: D50W (25GM) Syringe IV ONE (06:40)
[2018-08-26] MEDS ORDERED: KIONEX PO ONE (06:42)
[2018-08-26] MEDS ORDERED: HumuLIN R IV ONE (06:42)
[2018-08-26] MEDS ORDERED: SODIUM BICARBONATE 150 MEQ in D5W 1,000 ML IV SCH (07:00)
[2018-08-26 07:10] LABS: Anisocytosis Few; Band Neutrophils # (Manual) 1.1 K/mm3; Basophils % (Manual) 0 % (0.0-1.8); Eosinophils % (Manual) 0 % (0.0-4.3); Total Cells Counted 100
[2018-08-26 07:11] LABS: Burr Cells Few; Platelet Estimate Consistent w Auto
[2018-08-26] MEDS ORDERED: PANCREAZE DR 10,500 UNIT FEEDTUBE PRN (07:59)
[2018-08-26] MEDS ORDERED: SODIUM BICARBONATE FEEDTUBE PRN (07:59)
[2018-08-26] MEDS ORDERED: SIMPLE SYRUP FEEDTUBE PRN ×2 (07:59)
[2018-08-26] MEDS ORDERED: LOVENOX SUB-Q SCH ×2 (10:00)
--- NOTE | 2018-08-26 10:24 | Progress Note ---
Assessment and Plan Assessment and plan: CT chest with contrast IMPRESSION: Emphysema. Interseptal thickening with traction bronchiectasis and ground-glass opacities may represent pulmonary fibrosis. Differential diagnosis does include mild underlying pulmonary vascular congestion. Large anterior medial left upper lobe mass extending through the thoracic margins into the anterior soft tissues with rib destruction. No aortic aneurysm. No pulmonary embolus. Cardiomegaly. Indeterminate bilateral adrenal nodules. Hospitalist Physical - Constitutional Vitals: Temp Pulse Resp BP Pulse Ox 99.8 F H 92 H 41 H 118/59 98 08/26/18 03:20 08/26/18 09:29 08/26/18 09:29 08/26/18 09:02 08/26/18 09:02 General appearance: Present: severe distress, well-nourished Results - Labs CBC & Chem 7: 08/26/18 04:39 08/26/18 04:39 Labs: Laboratory Last Values WBC 13.2 K/mm3 (4.5-11.0) H 08/26/18 04:39 RBC 3.65 M/mm3 (3.65-5.03) 08/26/18 04:39 Hgb 11.1 gm/dl (11.8-15.2) L 08/26/18 04:39 Hct 36.1 % (35.5-45.6) 08/26/18 04:39 MCV 105 fl (84-94) H 08/26/18 04:39 MCH 31 pg (28-32) 08/26/18 04:39 MCHC 29 % (32-34) L 08/26/18 04:39 RDW 16.4 % (13.2-15.2) H 08/26/18 04:39 Plt Count 250 K/mm3 (140-440) 08/26/18 04:39 Lymph % (Auto) Review Specialist 08/25/18 16:54 [place] % (Auto) Review Specialist 08/25/18 16:54 Eos % (Auto) Review Specialist 08/25/18 16:54 Baso % (Auto) Review Specialist 08/25/18 16:54 Lymph # Review Specialist 08/25/18 16:54 [place] # Review Specialist 08/25/18 16:54 Eos # Review Specialist 08/25/18 16:54 Baso # Review Specialist 08/25/18 16:54 Add Manual Diff Complete 08/26/18 04:39 Total Counted 100 08/26/18 04:39 Seg Neutrophils % Review Specialist 08/26/18 04:39 Seg Neuts % (Manual) 85.0 % (40.0-70.0) H 08/26/18 04:39 Band Neutrophils % 8.0 % 08/26/18 04:39 Lymphocytes % (Manual) 5.0 % (13.4-35.0) L 08/26/18 04:39 Reactive Lymphs % (Man) 0 % 08/26/18 04:39 Monocytes % (Manual) 2.0 % (0.0-7.3) 08/26/18 04:39 Eosinophils % (Manual) 0 % (0.0-4.3) 08/26/18 04:39 Basophils % (Manual) 0 % (0.0-1.8) 08/26/18 04:39 Metamyelocytes % 0 % 08/26/18 04:39 Myelocytes % 0 % 08/26/18 04:39 Promyelocytes % 0 % 08/26/18 04:39 Blast Cells % 0 % 08/26/18 04:39 Nucleated RBC % Not Reportable 08/26/18 04:39 Seg Neutrophils # Review Specialist 08/25/18 16:54 Seg Neutrophils # Man 11.2 K/mm3 (1.8-7.7) H 08/26/18 04:39 Band Neutrophils # 1.1 K/mm3 08/26/18 04:39 Lymphocytes # (Manual) 0.7 K/mm3 (1.2-5.4) L 08/26/18 04:39 Abs React Lymphs (Man) 0.0 K/mm3 08/26/18 04:39 Monocytes # (Manual) 0.3 K/mm3 (0.0-0.8) 08/26/18 04:39 Eosinophils # (Manual) 0.0 K/mm3 (0.0-0.4) 08/26/18 04:39 Basophils # (Manual) 0.0 K/mm3 (0.0-0.1) 08/26/18 04:39 Metamyelocytes # 0.0 K/mm3 08/26/18 04:39 Myelocytes # 0.0 K/mm3 08/26/18 04:39 Promyelocytes # 0.0 K/mm3 08/26/18 04:39 Blast Cells # 0.0 K/mm3 08/26/18 04:39 WBC Morphology Not Reportable 08/26/18 04:39 Hypersegmented Neuts Not Reportable 08/26/18 04:39 Hyposegmented Neuts Not Reportable 08/26/18 04:39 Hypogranular Neuts Not Reportable 08/26/18 04:39 Smudge Cells Not Reportable 08/26/18 04:39 Toxic Granulation Not Reportable 08/26/18 04:39 Toxic Vacuolation Not Reportable 08/26/18 04:39 Dohle Bodies Not Reportable 08/26/18 04:39 Pelger-Huet Anomaly Not Reportable 08/26/18 04:39 Kamran Rods Not Reportable 08/26/18 04:39 Platelet Estimate Consistent w auto 08/26/18 04:39 Clumped Platelets Not Reportable 08/26/18 04:39 Plt Clumps, EDTA Not Reportable 08/26/18 04:39 Large Platelets Not Reportable 08/26/18 04:39 Giant Platelets Not Reportable 08/26/18 04:39 Platelet Satelliting Not Reportable 08/26/18 04:39 Plt Morphology Comment Not Reportable 08/26/18 04:39 RBC Morphology Not Reportable 08/26/18 04:39 Dimorphic RBCs Not Reportable 08/26/18 04:39 Polychromasia Few 08/26/18 04:39 Hypochromasia Not Reportable 08/26/18 04:39 Poikilocytosis Not Reportable 08/26/18 04:39 Anisocytosis Few 08/26/18 04:39 Microcytosis Not Reportable 08/26/18 04:39 Macrocytosis Not Reportable 08/26/18 04:39 Spherocytes Not Reportable 08/26/18 04:39 Pappenheimer Bodies Not Reportable 08/26/18 04:39 Sickle Cells Not Reportable 08/26/18 04:39 Target Cells Not Reportable 08/26/18 04:39 Tear Drop Cells Not Reportable 08/26/18 04:39 Ovalocytes Not Reportable 08/26/18 04:39 Helmet Cells Not Reportable 08/26/18 04:39 [place] Bodies Not Reportable 08/26/18 04:39 [place] Rings Not Reportable 08/26/18 04:39 [place] Cells Few 08/26/18 04:39 Bite Cells Not Reportable 08/26/18 04:39 Crenated Cell Not Reportable 08/26/18 04:39 Elliptocytes Not Reportable 08/26/18 04:39 Acanthocytes (Spur) Not Reportable 08/26/18 04:39 Rouleaux Not Reportable 08/26/18 04:39 Hemoglobin C Crystals Not Reportable 08/26/18 04:39 Schistocytes Not Reportable 08/26/18 04:39 Malaria parasites Not Reportable 08/26/18 04:39 Manoj Bodies Not Reportable 08/26/18 04:39 Hem Pathologist Commnt No 08/26/18 04:39 PT 17.4 Sec. (12.2-14.9) H 08/25/18 15:27 INR 1.38 (0.87-1.13) H 08/25/18 15:27 APTT 41.7 Sec. (24.2-36.6) H 08/25/18 15:27 POC ABG pH 7.051 (7.35-7.45) L 08/26/18 04:57 POC ABG pCO2 27.7 (35-45) L 08/26/18 04:57 POC ABG pO2 118 (80-105) H 08/26/18 04:57 POC ABG HCO3 7.7 08/26/18 04:57 POC ABG Total CO2 9 08/26/18 04:57 POC ABG O2 Sat 96 08/26/18 04:57 POC ABG Base Excess -23 08/26/18 04:57 FiO2 50 % 08/26/18 04:57 Sodium 142 mmol/L (137-145) D 08/26/18 04:39 Potassium 6.3 mmol/L (3.6-5.0) H* D 08/26/18 04:39 Chloride 98.8 mmol/L (98-107) 08/26/18 04:39 Carbon Dioxide 7 mmol/L (22-30) L* D 08/26/18 04:39 Anion Gap 43 mmol/L 08/26/18 04:39 BUN 15 mg/dL (9-20) 08/26/18 04:39 Creatinine 1.7 mg/dL (0.8-1.5) H 08/26/18 04:39 Estimated GFR 50 ml/min 08/26/18 04:39 BUN/Creatinine Ratio 9 % 08/26/18 04:39 Glucose 64 mg/dL (75-100) L 08/26/18 04:39 Lactic Acid 19.30 mmol/L (0.7-2.0) H* 08/26/18 04:39 Calcium 8.4 mg/dL (8.4-10.2) 08/26/18 04:39 Magnesium 1.90 mg/dL (1.7-2.3) 08/25/18 15:27 Total Bilirubin 1.70 mg/dL (0.1-1.2) H 08/26/18 04:39 AST 1190 units/L (5-40) H 08/26/18 04:39 ALT 364 units/L (7-56) H 08/26/18 04:39 Alkaline Phosphatase 123 units/L (35-129) 08/26/18 04:39 Troponin T 0.044 ng/mL (0.00-0.029) H 08/25/18 15:27 NT-Pro-B Natriuret Pep 44109 pg/mL (0-900) H 08/25/18 16:54 Total Protein 6.7 g/dL (6.3-8.2) D 08/26/18 04:39 Albumin 3.0 g/dL (3.9-5) L 08/26/18 04:39 Albumin/Globulin Ratio 0.8 % 08/26/18 04:39 Triglycerides 85 mg/dL (2-149) 08/25/18 15:27 Cholesterol 143 mg/dL (50-199) 08/25/18 15:27 LDL Cholesterol Direct 101 mg/dL (50-130) 08/25/18 15:27 HDL Cholesterol 34 mg/dL (40-59) L 08/25/18 15:27 Cholesterol/HDL Ratio 4.20 % 08/25/18 15:27 Nutrition/Malnutrition Assess - Dietary Evaluation Nutrition/Malnutrition Findings: Nutrition Notes Start: 08/26/18 07 :51 Freq: Status: Active Protocol: Document 08/26/18 07:52 LP (Rec: 08/26/18 07:59 LP [id number]) Nutrition Notes Need for Assessment generated from: MD Order Initial or Follow up Assessment Current Diagnosis Sepsis Heart Failure Respiratory Failure Other Pertinent Diagnosis Stage 3 lung CA with mets to bone, pneu Current Diet NPO Labs/Tests K 6.3 Cr 1.7 Pertinent Medications Solumedrol Height 5 ft 7 in Weight 67.2 kg [place] Body Weight (kg) 67.27 BMI 23.2 Subjective/Other Information Consult for TF. Pt on vent. Burn Absent Trauma Absent #1 Nutrition Diagnosis Inadequate oral intake Etiology vent As Evidenced by Signs and Symptoms Pt unable to consume PO intakes Is patient on ventilator? Yes Is Patient Ambulatory and/or Out of Bed No REE-([facility]-confined to bed) 5623.535 Calculation Used for Recommendations [facility] Additional Notes Protein needs are 81-134g (1.2 -2g/kg) Fluid needs are 1ml/kcal Nutrition Intervention Change Diet Order: TF Nutrition Support: Nepro at 40ml/hr Flush with 180ml q4h Kcal 1,728 Protein (gm) 78 Fluid (mL) 698 Goal #1 Meet at least 80% of kcal and protein needs via TF Anticipated Discharge Needs: Unable to determine at this time Follow-Up By: 08/28/18 Additional Comments Follow for TF start/tolerance
--- NOTE | 2018-08-26 11:56 | Death Summary ---
Summary - Providers Date of service: 08/26/18 Consults: 08/25/18 Consult to Case Management [CONS] Routine Services Needed at Discharge: Opener Tender Additional Physician Instructions: hospice placement 08/25/18 19:04 Consult to Dietitian/Nutrition [CONS] Routine Physician Instructions: Reason For Exam: Reason for Consult: Evaluate nutritional intake 08/25/18 19:31 Consult to Physician [CONS] Stat Comment: Dr. Friedman spoke with Dr. Matthews @ 1927 Consulting Provider: EMIL MATTHEWS Physician Instructions: Reason For Exam: critical patient 08/25/18 20:42 Consult to Dietitian/Nutrition [CONS] Routine Physician Instructions: Assess nutrtn needs, initiate, modify, manage TF Reason For Exam: Reason for Consult: Write/Manage Tube Feeding Reason for Consult: Write/Manage Tube Feeding 08/25/18 20:44 Consult to Physician [CONS] Routine Comment: Consulting Provider: MIKA HERNANDEZ Physician Instructions: Reason For Exam: Lung Ca Attending: MARI SOLOMON - summary Date of admission: 08/25/18 20:25 Date of : 08/26/18 Significant findings: CT chest with contrast IMPRESSION: Emphysema. Interseptal thickening with traction bronchiectasis and ground-glass opacities may represent pulmonary fibrosis. Differential diagnosis does include mild underlying pulmonary vascular congestion. Large anterior medial left upper lobe mass extending through the thoracic margins into the anterior soft tissues with rib destruction. No aortic aneurysm. No pulmonary embolus. Cardiomegaly. Indeterminate bilateral adrenal nodules. By the time I saw patient he was already intubated and Family was outside the door waiting to speak with a physician. I met his mother, 2 sisters and documented POA, niece, Norma Reynolds, who worked with me 12-13 years ago at [facility]. The family was upset because he was intubated and that was not his wishes. I asked why was he intubated and Norma stated, maybe they did not have the Advance Directive form but they would like to take him off the Mechanical Ventilation as soon as possible. Clinical, patient has agonal breathing, no corneal reflex, no gag Patient was extubated then asystole at 1108 and I pronounced at 1110. Cause of ; lung cancer presumably
[2018-08-26] MEDS ORDERED: VANCOMYCIN/NS 1 GM/250 ML 1 GM/250 ML BAG IV SCH (18:00)
[2018-08-27 19:35] VITALS: BP 94/52
== END 2018-08-26 16:19 | DRG 871 ==
LOC: ED 14:57 → CC1 20:25
PROVIDERS: ADMIT Internal Medicine; ATTEND Internal Medicine
PROC: 4A033R1 Measurement of Arterial Saturation, Peripheral, Percutaneous Approach (ICD-10-PCS; principal; 2018-08-25)
PROC: 5A1935Z Respiratory Ventilation, Less than 24 Consecutive Hours (ICD-10-PCS; 2018-08-25)
PROC: 0BH17EZ Insertion of Endotracheal Airway into Trachea, Via Natural or Artificial Opening (ICD-10-PCS; 2018-08-25)
DX: A41.9 Sepsis, unspecified organism (principal); J96.01 Acute respiratory failure with hypoxia; J18.9 Pneumonia, unspecified organism; E46 Unspecified protein-calorie malnutrition; E87.1 Hypo-osmolality and hyponatremia; C79.51 Secondary malignant neoplasm of bone; F17.200 Nicotine dependence, unspecified, uncomplicated; C34.90 Malignant neoplasm of unspecified part of unspecified bronchus or lung; I50.9 Heart failure, unspecified; Z68.23 Body mass index [BMI] 23.0-23.9, adult; Z92.3 Personal history of irradiation
CPT/HCPCS: 36415; 36600; 71045; 71275; 74018; 80053; 80061; 82140; 82803; 83735; 83880; 84484; 85007; 85025; 85610; 85730; 87040; 87070; 87205; 93005; 93010; 94002; 94003; 94640; 99292; G0378; J0330; J0692; J1650; J2060; J2250; J2704; J2930; J3370; J7030; J7040; J7070; Q9967